=== PATIENT | male | born 1955 | race Caucasian/White ===

== ENCOUNTER → 2020-07-06 | Day surgery (SDC) | payer BC ==
[~2020-07-06] MED LIST: Midazolam 1 MG/ML 2 ML SDV ONE; Propofol 200 MG/20 ML SDV ONE; Sodium Chloride 0.9% 1,000 ML IV SCH; fentaNYL 100 MCG/2 ML SDV ONE
[2020-07-06 10:17] VITALS: BP 153/86; PULSE 72
--- NOTE | 2020-07-06 15:21 | OR ---
DATE OF PROCEDURE: 07/06/2020 SURGEON: Baljit Luu MD PROCEDURE: Colonoscopy PREOPERATIVE DIAGNOSIS: Family history of colorectal cancer. POSTOPERATIVE DIAGNOSIS: Family history of colorectal cancer. FINDINGS: 1. Ascending colon polyp, approximately 5 mm, completely removed using cold biopsy forceps. 2. Descending colon polyp, approximately 8 mm, completely removed using hot snare wire device. COMPLICATIONS: None. VAT TENDER: None. ANESTHESIA: MAC. RISKS: Risks, benefits, alternatives, and limitations including, but not limited to infection, bleeding, perforation, false positives and false negatives were explained to the patient and he wished to proceed. PROCEDURE IN DETAIL: The patient was placed in left lateral decubitus position. Digital rectal exam was performed without abnormality. Scope was introduced and advanced atraumatically to the ileocecal valve. A photo was taken of this. Scope was brought back to the ascending, transverse, descending colon, and retroflexed. The aforementioned polyps were identified and completely removed. As described above, no abnormalities noted after removal. No diverticulosis. No colitis. No old or new blood. No abnormalities on retroflexion. Greater than 8 minutes was spent removing the scope. The prep was acceptable with approximately 90% of the luminal surface could be seen. The patient tolerated the procedure well. Baljit Luu MD /[id number]
== END ==
LOC: JP.SDS 07:05
PROVIDERS: ATTEND Surgery
DX: Z12.11 Encounter for screening for malignant neoplasm of colon (principal); D12.2 Benign neoplasm of ascending colon; D12.4 Benign neoplasm of descending colon; I10 Essential (primary) hypertension; E78.5 Hyperlipidemia, unspecified; Z80.0 Family history of malignant neoplasm of digestive organs
CPT/HCPCS: 45380; 45385; J2250; J2704; J3010; J7030; 88305

== ENCOUNTER 2020-08-10 09:47 | Emergency (ER) | payer BC ==
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
[2020-08-10 11:13] VITALS: BP 147/68; PULSE 52
== END 2020-08-10 11:29 | disposition home or self-care (01) ==
LOC: JP.ED 09:47
DX: I10 Essential (primary) hypertension (principal); E78.00 Pure hypercholesterolemia, unspecified; E03.9 Hypothyroidism, unspecified; Z79.899 Other long term (current) drug therapy; Z72.0 Tobacco use
CPT/HCPCS: 93005; 99283-25